=== PATIENT | male | born 1950 | race Caucasian/White ===

== ENCOUNTER 2017-08-24 09:28 | Day surgery (SDC) | payer MEDICARE, BC ==
[2017-08-24] MEDS ORDERED: LACTATED RINGERS 1,000 ML IV ONE ×2 (09:33→11:49)
[2017-08-24] MEDS ORDERED: fentaNYL 100 MCG/2 ML VIAL IVP ONE (11:53)
[2017-08-24] MEDS ORDERED: MIDAZOLAM 2 MG/2 ML VIAL IVP ONE (11:53)
[2017-08-24 12:27] VITALS: BP 130/82
== END 2017-08-24 09:29 | disposition home or self-care (01) ==
LOC: SDS 09:28
PROVIDERS: ATTEND Surgery
PROC: 0DJD8ZZ Inspection of Lower Intestinal Tract, Via Natural or Artificial Opening Endoscopic (ICD-10-PCS; principal; 2017-08-24 11:15)
DX: Z12.11 Encounter for screening for malignant neoplasm of colon (principal); Z79.82 Long term (current) use of aspirin; Z86.010 Personal history of colon polyps; E78.5 Hyperlipidemia, unspecified; Z87.891 Personal history of nicotine dependence
CPT/HCPCS: G0105; J7120

== ENCOUNTER 2017-08-25 07:17 | Day surgery (SDC) | payer MEDICARE, BC ==
[2017-08-25] MEDS ORDERED: LACTATED RINGERS 1,000 ML IV ONE ×2 (07:20→09:32)
[2017-08-25] MEDS ORDERED: ONDANSETRON 4 MG/2 ML VIAL ONE (08:05)
[2017-08-25] MEDS ORDERED: MIDAZOLAM 2 MG/2 ML VIAL IVP ONE (08:47)
[2017-08-25] MEDS ORDERED: fentaNYL 100 MCG/2 ML VIAL IVP ONE (08:47)
[2017-08-25 10:27] VITALS: BP 128/75
== END 2017-08-25 07:18 | disposition home or self-care (01) ==
LOC: SDS 07:17
PROVIDERS: ATTEND Surgery
PROC: 0DBL8ZX Excision of Transverse Colon, Via Natural or Artificial Opening Endoscopic, Diagnostic (ICD-10-PCS; principal; 2017-08-25 08:30)
DX: Z12.11 Encounter for screening for malignant neoplasm of colon (principal); K57.30 Diverticulosis of large intestine without perforation or abscess without bleeding; D12.3 Benign neoplasm of transverse colon; K64.8 Other hemorrhoids; Z79.82 Long term (current) use of aspirin; E78.5 Hyperlipidemia, unspecified; Z87.891 Personal history of nicotine dependence
CPT/HCPCS: 45380; J7120

== ENCOUNTER 2022-05-02 13:48 | Emergency (ER) | payer MEDICARE, BC ==
[2022-05-02 14:12] VITALS: BP 152/96
--- NOTE | 2022-05-02 15:04 | CT Report ---
PROCEDURE: HEAD WO INDICATIONS: LEES/trauma TECHNIQUE: Noncontrast 4.5 mm thick angled axial sections acquired from the foramen magnum to the vertex. For r adiation dose reduction, the following was used: automated exposure control, adjustment of mA and/or kV according to patient size. COMPARISON: None. FINDINGS: Image quality: Excellent. CSF spaces: Basal cisterns are patent. No extra-axial fluid collections. Ventricles are normal in size and shape. Brain: No midline shift. No intracranial masses or hemorrhage. Hair-white matter interface is norm al. Skull and face: Suspect contusion to the left frontal scalp. Calvarium and visualized facial bones a re intact, without suspicious lesions. Sinuses: Visualized sinuses and mastoids are clear. IMPRESSION: No acute intracranial abnormality. Suspect contusion to the left frontal scalp. Reviewed by: Shemar Chowdhury MD on 05/02/2022 3:03 PM PDT Approved by: Shemar Chowdhury MD on 05/02/2022 3:03 PM PDT Station ID: [id number]
== END 2022-05-02 16:18 | disposition left against medical advice (07) ==
LOC: ED 13:48
DX: Z53.21 Procedure and treatment not carried out due to patient leaving prior to being seen by health care provider (principal)

== ENCOUNTER 2022-12-19 08:59 | Outpatient (CLI) | payer MEDICARE, BC ==
[2022-12-19 09:23] LABS: BASOPHILS % (AUTO) 0.7 %; EOSINOPHILS # (AUTO) 0.2 10^3/uL (0.0-0.7); EOSINOPHILS % (AUTO) 3.8 %; HCT - HEMATOCRIT 42.8 % (42.0-52.0); HGB - HEMOGLOBIN 14.1 g/dL (14.0-18.0); LYMPHOCYTES # (AUTO) 1.3 10^3/uL (1.5-3.5); LYMPHOCYTES % (AUTO) 20.4 %; MEAN CORPUSCULAR HEMOGLOBIN 31.8 pg (27.0-31.0); MEAN CORPUSCULAR HGB CONC 32.9 g/dL (32.0-36.0); MEAN CORPUSCULAR VOLUME 96.4 fL (80.0-94.0); MEAN PLATELET VOLUME 9.7 fL (7.4-11.4); MONOCYTES # (AUTO) 0.7 10^3/uL (0.0-1.0); MONOCYTES % (AUTO) 11.4 %; NEUTROPHILS # (AUTO) 3.9 10^3/uL (1.5-6.6); NEUTROPHILS % (AUTO) 63.4 %; PLT - PLATELET COUNT 288 10^3/uL (130-450); RED BLOOD COUNT 4.44 10^6/uL (4.70-6.10); RED CELL DISTRIBUTION WIDTH 12.3 % (12.0-15.0); WHITE BLOOD COUNT 6.1 x10^3/uL (4.8-10.8)
[2022-12-19 09:41] LABS: ALBUMIN 3.9 g/dL (3.2-5.5); ALBUMIN/GLOBULIN RATIO 1.2 (1.0-2.2); ALKALINE PHOSPHATASE 56 IU/L (42-121); ALT ALANINE AMINOTRANSFERASE 28 IU/L (10-60); AST ASPARTATE AMINOTRANSFERASE 25 IU/L (10-42); BUN - BLOOD UREA NITROGEN 18 mg/dL (6-20); CALCIUM 8.9 mg/dL (8.5-10.3); CARBON DIOXIDE - CO2 24 mmol/L (21-32); CHLORIDE 106 mmol/L (101-111); CHOL/HDL RATIO 3.1 (<5.0); CHOLESTEROL 270 mg/dL; CREATININE 0.7 mg/dL (0.6-1.2); GFR - MDRD 111 (>89); GLUCOSE 99 mg/dL (70-100); HDL CHOLESTEROL 87 mg/dL; LDL CHOLESTEROL,CALCULATED 169 mg/dL; LDL/HDL RATIO 1.9 (<3.6); POTASSIUM 4.1 mmol/L (3.5-5.0); SODIUM 139 mmol/L (135-145); TOTAL PROTEIN 7.1 g/dL (6.7-8.2); TRIGLYCERIDES 70 mg/dL; VLDL CHOLESTEROL 14 mg/dL
[2022-12-19 09:53] LABS: THYROID STIMULATING HORMONE 2.02 uIU/mL (0.34-5.60)
== END 2022-12-19 09:00 | disposition home or self-care (01) ==
LOC: LAB 08:59
PROVIDERS: ATTEND Family Medicine
DX: Z12.5 Encounter for screening for malignant neoplasm of prostate (principal); R03.0 Elevated blood-pressure reading, without diagnosis of hypertension; S06.0X1A Concussion with loss of consciousness of 30 minutes or less, initial encounter
CPT/HCPCS: 36415; 80053; 80061; 84443; 85025; G0103; 83721; 84153

== ENCOUNTER 2023-07-07 10:52 | Day surgery (SDC) | payer MEDICARE, BC ==
[2023-07-07] MEDS ORDERED: LACTATED RINGERS 1,000 ML IV ONE (11:20)
--- NOTE | 2023-07-07 11:51 | ANESTHESIA ---
Pre-Anesthesia VS, & Labs - Diagnosis screening exam - Procedure colonoscopy Vital Signs: Temp Pulse Resp BP Pulse Ox O2 Flow Rate 36.3 C L 77 16 146/98 H 98 07/07/23 11:11 07/07/23 11:11 07/07/23 11:11 07/07/23 11:11 07/07/23 11:11 Height: 5 ft 8 in Weight (kg): 79.4 kg Body Mass Index: 26.6 BMI Classification: Overweight - NPO >8 hours Home Medications and Allergies Calcium/Magnesium/Vitamin D3 [Hema-Mag Complex 300-150 mg Tab] 1 each PO DAILY 08/23/17 Meclizine HCl 12.5 mg PO PRN PRN 08/23/17 Multivitamin [Multivitamins] 1 each PO DAILY 08/23/17 Allergies/Adverse Reactions: Allergies Allergy/AdvReac Type Severity Reaction Status Date / Time Penicillins Allergy Respiratory Verified 05/02/22 14:11 Anes History & Medical History - Anesthetic History Anesthesia Complications: reports: No previous complications - Medical History Cardiovascular: reports: High cholesterol Pulmonary: reports: None Gastrointestinal: reports: GERD, Colon polyps Urinary: reports: None Neuro: reports: None Musculoskeletal: reports: Chronic back pain Endocrine/Autoimmune: reports: None Skin: reports: Eczema, Psoriasis, Other Smoking Status: Never smoker Psychosocial: reports: Alcohol (1-2 drinks per day) History of Cancer?: Yes (melanoma) - Surgical History General: reports: Colonoscopy Eyes Ears Nose Throat (EENT): reports: Other (septoplasty) Exam General: Alert, Oriented x3, Cooperative, No acute distress Dental: WNL Mouth Openin Fingerbreadth Neck Mobility: Normal Mallampati classification: III Thyromental Distance: 4-6 cm Mental/Cognitive Status: Alert/Oriented X3, Normal for patient Plan Anesthesia Type: General, Total IV Consent for Procedure(s) Verified and Reviewed: Yes Code Status: Attempt Resuscitation ASA classification: 2-Mild systemic disease Is this case an emergency?: No
[2023-07-07] MEDS ORDERED: LACTATED RINGERS 100 ML IV ONE (12:41)
[2023-07-07 12:58] VITALS: O2SAT 98
[2023-07-07] MEDS ORDERED: PROPOFOL 500 MG/50 ML 500 MG/50 ML VIAL ONE (13:06)
[2023-07-07 13:07] VITALS: BP 121/92
--- NOTE | 2023-07-07 13:12 | ANESTHESIA POST OP EVALUATION ---
Anesthesia Post Eval - Post Anesthesia Eval Vitals: Last Vital Signs Temp 36.3 C L 07/07/23 13:06 Pulse 88 07/07/23 13:06 Resp 16 07/07/23 13:06 BP 121/92 H 07/07/23 13:06 Pulse Ox 98 07/07/23 13:06 O2 Flow Rate CV Function Including HR & BP: Stable Pain Control: Satisfactory Nausea & Vomiting: Negative Mental Status: Baseline Respiratory Status: Airway Patent Hydration Status: Satisfactory Anesthesia Complications: None
== END 2023-07-07 10:53 | disposition home or self-care (01) ==
LOC: SDS 10:52
PROVIDERS: ATTEND Surgery
DX: Z12.11 Encounter for screening for malignant neoplasm of colon (principal); K57.30 Diverticulosis of large intestine without perforation or abscess without bleeding; Z86.010 Personal history of colon polyps
CPT/HCPCS: G0105; J7120

== ENCOUNTER 2023-09-21 07:13 | Day surgery (SDC) | payer MEDICARE, BC ==
[2023-09-21] MEDS ORDERED: BSS/LIDOCAINE/EPINEPHRINE 1 ML VIAL IO ONE (07:14)
[2023-09-21] MEDS ORDERED: PHENYLEPHRINE 2.5% OPHTH 2 ML DROPS EACHEYE ONE (07:14)
[2023-09-21] MEDS ORDERED: BRIMONIDINE 0.2% OPHTH DROPS 5 ML EACHEYE ONE (07:14)
[2023-09-21] MEDS ORDERED: EPINEPHrine 1 MG/ML AMP IO ONE (07:14)
[2023-09-21] MEDS ORDERED: TRIAMCIN/MOXIFLOX OPHTHALMIC 0.6 ML VIAL IO ONE (07:14)
[2023-09-21] MEDS ORDERED: TIMOLOL 0.5% OPHTH DROPS EACHEYE ONE (07:14)
[2023-09-21] MEDS ORDERED: KETOROLAC 0.45% OPHTH DROPS EACHEYE ONE (07:14)
[2023-09-21] MEDS: PROPARACAINE 0.5% OPHTH DROPS 15 ML ONE (07:34)
[2023-09-21] MEDS: KETOROLAC 0.45% OPHTH DROPS ONE (07:34)
[2023-09-21] MEDS: PHENYLEPHRINE 2.5% OPHTH 2 ML DROPS ONE (07:34)
[2023-09-21] MEDS: LACTATED RINGERS 1,000 ML IV ONE (07:51)
--- NOTE | 2023-09-21 08:37 | ANESTHESIA ---
Pre-Anesthesia VS, & Labs - Diagnosis LEFT EYE CATARACT - Procedure PE IOL OS Vital Signs: Temp Pulse Resp BP Pulse Ox O2 Flow Rate 36.5 C 77 13 164/88 H 99 09/21/23 07:29 09/21/23 07:29 09/21/23 07:29 09/21/23 07:29 09/21/23 07:29 Height: 5 ft 8 in Weight (kg): 81.1 kg Body Mass Index: 27.1 BMI Classification: Overweight - NPO Last Fluid Intake: 0430 Home Medications and Allergies Calcium/Magnesium/Vitamin D3 [Hema-Mag Complex 300-150 mg Tab] 1 each PO DAILY 08/23/17 Meclizine HCl 12.5 mg PO PRN PRN 08/23/17 Multivitamin [Multivitamins] 1 each PO DAILY 08/23/17 Allergies/Adverse Reactions: Allergies Allergy/AdvReac Type Severity Reaction Status Date / Time Penicillins Allergy Respiratory Verified 05/02/22 14:11 fentanyl AdvReac Emesis Verified 09/21/23 07:54 Anes History & Medical History - Anesthetic History Anesthesia Complications: reports: Post-Operative Nausea/Vomiting (WITH FENTANYL) Family history of Anesthesia Complications: Denies - Medical History Cardiovascular: reports: High cholesterol (DENIES CP/SOB) Pulmonary: reports: None Gastrointestinal: reports: GERD (CONTROLLED WITH DIET), Colon polyps Urinary: reports: None Neuro: reports: None Musculoskeletal: reports: Chronic back pain Endocrine/Autoimmune: reports: None Skin: reports: Eczema, Psoriasis, Other Smoking Status: Never smoker (WAS 25 YEARS AGO) Psychosocial: reports: Alcohol (OCCASIONAL) - Surgical History General: reports: Colonoscopy Eyes Ears Nose Throat (EENT): reports: Other Exam General: Alert Dental: WNL Mouth Openin Fingerbreadth Neck Mobility: Normal Mallampati classification: II Thyromental Distance: 4-6 cm Plan Anesthesia Type: MAC Consent for Procedure(s) Verified and Reviewed: Yes Code Status: Attempt Resuscitation ASA classification: 2-Mild systemic disease Is this case an emergency?: No
[2023-09-21] MEDS: BRIMONIDINE 0.2% OPHTH DROPS 5 ML OPTH ONE (08:57)
[2023-09-21] MEDS: EPINEPHrine 1 MG/ML AMP IR ONE (08:57)
[2023-09-21] MEDS: TIMOLOL 0.5% OPHTH DROPS OPTH ONE (08:57)
[2023-09-21] MEDS: TRIAMCIN/MOXIFLOX OPHTHALMIC 0.6 ML VIAL IO ONE (08:58)
[2023-09-21] MEDS: BSS/LIDOCAINE/EPINEPHRINE 1 ML SYRINGE IO ONE (08:58)
[2023-09-21] MEDS: PROPARACAINE 0.5% OPHTH DROPS 15 ML EACHEYE ONE (08:58)
[2023-09-21] MEDS: VANCOMYCIN OPHTH (TOPICAL) 10 MG/ML SYRINGE TOP ONE (08:58)
[2023-09-21] MEDS ORDERED: MIDAZOLAM 2 MG/2 ML VIAL ONE (09:06)
[2023-09-21] MEDS ORDERED: LIDOCAINE-PF 2% 10 ML AMP SUBQ ONE (09:08)
[2023-09-21] MEDS ORDERED: BSS/LIDOCAINE/EPINEPHRINE 1 ML VIAL ONE (09:20)
[2023-09-21] MEDS: LACTATED RINGERS 500 ML IV ONE (09:32)
[2023-09-21 09:45] VITALS: BP 148/89; O2SAT 98
--- NOTE | 2023-09-21 09:46 | OPERATIVE REPORT ---
Operative Report - Other Other Information/Narrative: Date of Surgery: 09/21/23 Preop Dx: Visually significant cataract left eye. This was the first cataract surgery. Postop Dx: Same Procedure: Phacoemulsification with posterior chamber intraocular lens implant left eye Surgeon: Dr. Nick Haley Anesthesia: Monitored anesthesia care Complications: None Operative Indications: This is a 73-year-old M with progressive vision loss in the left eye due to 3+ nuclear sclerotic cataract. Best corrected visual acuity was 20/25 with glare to 20/70 vision in the left eye. Indications for surgery were: - Difficulty seeing words on a computer screen - Difficulty reading - Difficulty driving in low light or at night - Difficulty driving at night because of headlights from other vehicles - Difficulty with glare or bright lights in any situation The patient was consented at length concerning the risks and benefits of cataract surgery after which the patient expressed a desire to proceed with surgery. Operative Procedure: The patient was taken into OR#3 and placed under monitored anesthesia care. A surgical time-out was conducted confirming correct patient, correct procedure, and correct surgical site. The patient was given topical anesthesia and then prepped and draped in the usual sterile fashion. The eye was entered at the 6 and 3 oclock positions. Intracameral Shugarcaine was injected into the anterior chamber followed by a dispersive viscoelastic. A continuous-tear curvilinear capsulorhexis was performed. The nucleus was hydrodissected and phacoemulsified. The cortex was evacuated using automated infusion and aspiration. A cohesive viscoelastic was injected into the capsular bag and a 19.0 diopter intraocular lens was inserted into the bag. Infusion and aspiration were used to evacuate the viscoelastic materials from the eye. The wounds were hydrated and the eye inflated to physiologic pressure using balanced salt solution. Approximately 0.25ml of a mixture of triamcinolone and moxifloxacin was injected trans-sclerally into the vitreous in the inferotemporal quadrant using a 30 gauge cannula. An additional 0.25ml of a mixture of triamcinolone and moxifloxacin was injected subconjunctivally in the superior quadrant for infection and inflammation prophylaxis. Wound integrity was checked with Weck-Brenda sponges. The patient was taken from the operating r oom in good condition and given post-op instructions.
--- NOTE | 2023-09-21 10:02 | ANESTHESIA POST OP EVALUATION ---
Anesthesia Post Eval - Post Anesthesia Eval Vitals: Last Vital Signs Temp 36.7 C 09/21/23 09:32 Pulse 83 09/21/23 09:41 Resp 16 09/21/23 09:41 BP 148/89 H 09/21/23 09:41 Pulse Ox 98 09/21/23 09:41 O2 Flow Rate CV Function Including HR & BP: Stable Pain Control: Satisfactory Nausea & Vomiting: Negative Mental Status: Baseline Respiratory Status: Airway Patent Hydration Status: Satisfactory Anesthesia Complications: None
== END 2023-09-21 07:14 | disposition home or self-care (01) ==
LOC: SDS 07:13
PROVIDERS: ATTEND Ophthalmology
DX: H25.812 Combined forms of age-related cataract, left eye (principal)
CPT/HCPCS: 66984; A9270; J3490; J7120

== ENCOUNTER 2023-09-28 09:18 | Day surgery (SDC) | payer MEDICARE, BC ==
[2023-09-28] MEDS: LACTATED RINGERS 1,000 ML IV ONE (09:39)
[2023-09-28] MEDS: PROPARACAINE 0.5% OPHTH DROPS 15 ML ONE (09:45)
[2023-09-28] MEDS: KETOROLAC 0.45% OPHTH DROPS ONE (09:46)
[2023-09-28 09:47] VITALS: O2SAT 98
[2023-09-28] MEDS ORDERED: MIDAZOLAM 2 MG/2 ML VIAL ONE (10:51)
[2023-09-28] MEDS ORDERED: EPINEPHrine 1 MG/ML AMP ONE (10:59)
[2023-09-28] MEDS ORDERED: BRIMONIDINE 0.2% OPHTH DROPS 5 ML ONE (11:00)
[2023-09-28] MEDS ORDERED: TIMOLOL 0.5% OPHTH DROPS ONE (11:00)
[2023-09-28] MEDS ORDERED: BSS/LIDOCAINE/EPINEPHRINE 1 ML VIAL ONE (11:00)
[2023-09-28] MEDS ORDERED: TRIAMCIN/MOXIFLOX OPHTHALMIC 0.6 ML VIAL IO ONE (11:00)
--- NOTE | 2023-09-28 11:01 | ANESTHESIA ---
Pre-Anesthesia VS, & Labs - Diagnosis retained lens fragment - Procedure extraction of retained lens fragment Vital Signs: Temp Pulse Resp BP Pulse Ox O2 Flow Rate 36.3 C L 74 18 156/103 H 98 09/28/23 09:30 09/28/23 09:30 09/28/23 09:30 09/28/23 09:30 09/28/23 09:30 Height: 5 ft 8 in Weight (kg): 80 kg Body Mass Index: 26.8 BMI Classification: Overweight - NPO >8 hours Home Medications and Allergies Home Medications: Ambulatory Orders Loratadine [Claritin] 1 tab PO DAILY 09/28/23 Calcium/Magnesium/Vitamin D3 [Hema-Mag Complex 300-150 mg Tab] 1 each PO DAILY 08/23/17 Meclizine HCl 12.5 mg PO PRN PRN 08/23/17 Multivitamin [Multivitamins] 1 each PO DAILY 08/23/17 Loratadine [Claritin] 1 tab PO DAILY 09/28/23 Allergies/Adverse Reactions: Allergies Allergy/AdvReac Type Severity Reaction Status Date / Time Penicillins Allergy Respiratory Verified 09/27/23 14:18 fentanyl AdvReac Emesis Verified 09/27/23 14:18 Anes History & Medical History - Anesthetic History Anesthesia Complications: reports: No previous complications Family history of Anesthesia Complications: Denies Family history of Malignant Hyperthermia: Denies - Medical History Cardiovascular: reports: High cholesterol Pulmonary: reports: None Gastrointestinal: reports: GERD, Colon polyps Urinary: reports: None Neuro: reports: None Musculoskeletal: reports: None Endocrine/Autoimmune: reports: None Skin: reports: Eczema, Psoriasis Smoking Status: Never smoker (WAS 25 YEARS AGO) - Surgical History General: reports: Colonoscopy Eyes Ears Nose Throat (EENT): reports: Other Exam General: Alert, Oriented x3, Cooperative Dental: WNL Mouth Openin Fingerbreadth Neck Mobility: Normal Mallampati classification: II Thyromental Distance: 4-6 cm Respiratory: Lungs clear Cardiovascular: Regular rate Plan Anesthesia Type: MAC Consent for Procedure(s) Verified and Reviewed: Yes Code Status: Attempt Resuscitation ASA classification: 2-Mild systemic disease Is this case an emergency?: No
[2023-09-28] MEDS: BRIMONIDINE 0.2% OPHTH DROPS 5 ML OPTH ONE (11:05)
[2023-09-28] MEDS: CHONDR SULF/HYALURONATE SYRINGE IO ONE (11:06)
[2023-09-28] MEDS: TRIAMCINOLONE PF 40 MG/ML VIAL IO ONE (11:06)
[2023-09-28] MEDS: PROPARACAINE 0.5% OPHTH DROPS 15 ML LEFTEYE ONE (11:06)
[2023-09-28] MEDS: TIMOLOL 0.5% OPHTH DROPS OPTH ONE (11:06)
[2023-09-28] MEDS: CARBACHOL 0.01% 1.5 ML VIAL IO ONE (11:07)
[2023-09-28] MEDS: LIDOCAINE-MPF 1% 30 ML VIAL IJ ONE (11:07)
[2023-09-28] MEDS: LACTATED RINGERS 700 ML IV ONE (11:32)
--- NOTE | 2023-09-28 11:39 | OPERATIVE REPORT ---
Operative Report - Other Other Information/Narrative: Date of Surgery: 09/28/23 Preop Dx: Retained lens fragment left eye. Cataract surgery was performed in the left eye on . On post-operative day #1 a lens fragment was noted in the anterior chamber. Postop Dx: Same Procedure: Aspiration of a retained lens fragment left eye Surgeon: Dr. Nick Haley Anesthesia: Monitored anesthesia care Complications: None Operative Indications: This is a 73-year-old M who, one day after uncomplicated cataract surgery, was noted to have a piece of his crystalline lens remaining in the anterior chamber. Indication for surgery is that the fragment would cause continued inflammation in the eye and possibly cause damage to the endothelium of the cornea. The patient was consented at length concerning the risks and benefits of retained lens fragment removal after which the patient expressed a desire to proceed with surgery. Operative Procedure: The patient was taken into OR#3 and placed under monitored anesthesia care. A surgical time-out was conducted confirming correct patient, correct procedure, and correct surgical site. The patient was given topical anesthesia and then prepped and draped in the usual sterile fashion. The eye was entered at the 6 and 3 oclock positions. Intracameral Shugarcaine was injected into the anterior chamber. A rather large piece of lens material was noted to move about in the anterior chamber. This turned out to be nucleus rather than cortex. The retained tissue evacuated using automated infusion and aspiration. The wounds were hydrated and the eye inflated to physiologic pressure using balanced salt solution. Approximately 0.25ml of a mixture of triamcinolone and moxifloxacin was injected trans-sclerally into the vitreous in the inferotemporal quadrant using a 30 gauge cannula. An additional 0.25ml of a mixture of triamcinolone and moxifloxacin was injected subconjunctivally in the superior quadrant for infection and inflammation prophylaxis. Wound integrity was checked with Weck-Brenda sponges. The patient was taken from the operating room in good condition and given post-op instructions.
--- NOTE | 2023-09-28 11:50 | ANESTHESIA POST OP EVALUATION ---
Anesthesia Post Eval - Post Anesthesia Eval Vitals: Last Vital Signs Temp 36.7 C 09/28/23 11:44 Pulse 85 09/28/23 11:44 Resp 16 09/28/23 11:44 BP 136/77 H 09/28/23 11:44 Pulse Ox 98 09/28/23 11:44 O2 Flow Rate CV Function Including HR & BP: Stable Pain Control: Satisfactory Nausea & Vomiting: Negative Mental Status: Baseline Respiratory Status: Airway Patent Hydration Status: Satisfactory Anesthesia Complications: None
[2023-09-28 11:51] VITALS: BP 136/77
== END 2023-09-28 09:19 | disposition home or self-care (01) ==
LOC: SDS 09:18
PROVIDERS: ATTEND Ophthalmology
DX: H59.022 Cataract (lens) fragments in eye following cataract surgery, left eye (principal); Z87.891 Personal history of nicotine dependence
CPT/HCPCS: 66840; A9270; J3300; J3490; J7120

== ENCOUNTER 2024-05-03 09:23 | Outpatient (CLI) | payer MEDICARE, BC ==
[2024-05-03 09:41] LABS: BASOPHILS # (AUTO) 0.1 10^3/uL (0.0-0.1); BASOPHILS % (AUTO) 0.8 %; EOSINOPHILS # (AUTO) 0.2 10^3/uL (0.0-0.7); EOSINOPHILS % (AUTO) 2.6 %; HCT - HEMATOCRIT 42.1 % (42.0-52.0); HGB - HEMOGLOBIN 13.7 g/dL (14.0-18.0); LYMPHOCYTES # (AUTO) 1.6 10^3/uL (1.5-3.5); LYMPHOCYTES % (AUTO) 25.8 %; MEAN CORPUSCULAR HEMOGLOBIN 31.5 pg (27.0-31.0); MEAN CORPUSCULAR HGB CONC 32.5 g/dL (32.0-36.0); MEAN CORPUSCULAR VOLUME 96.8 fL (80.0-94.0); MEAN PLATELET VOLUME 9.9 fL (7.4-11.4); MONOCYTES # (AUTO) 0.8 10^3/uL (0.0-1.0); MONOCYTES % (AUTO) 12.2 %; NEUTROPHILS # (AUTO) 3.6 10^3/uL (1.5-6.6); NEUTROPHILS % (AUTO) 58.3 %; PLT - PLATELET COUNT 300 10^3/uL (130-450); RED BLOOD COUNT 4.35 10^6/uL (4.70-6.10); WHITE BLOOD COUNT 6.1 x10^3/uL (4.8-10.8)
[2024-05-03 09:55] LABS: ALBUMIN 4.1 g/dL (3.2-5.5); ALBUMIN/GLOBULIN RATIO 1.4 (1.0-2.2); ALKALINE PHOSPHATASE 54 IU/L (42-121); ALT ALANINE AMINOTRANSFERASE 22 IU/L (10-60); AST ASPARTATE AMINOTRANSFERASE 18 IU/L (10-42); BILIRUBIN,TOTAL 0.6 mg/dL (0.2-1.0); BUN - BLOOD UREA NITROGEN 13 mg/dL (6-20); CALCIUM 9.3 mg/dL (8.5-10.3); CARBON DIOXIDE - CO2 26 mmol/L (21-32); CHLORIDE 107 mmol/L (101-111); CHOL/HDL RATIO 3.6 (<5.0); CHOLESTEROL 238 mg/dL; CREATININE 0.7 mg/dL (0.6-1.3); GFR - MDRD 111 (>89); GLUCOSE 98 mg/dL (74-104); HDL CHOLESTEROL 67 mg/dL; LDL CHOLESTEROL,CALCULATED 146 mg/dL; LDL/HDL RATIO 2.2 (<3.6); SODIUM 139 mmol/L (135-145); TRIGLYCERIDES 125 mg/dL; VLDL CHOLESTEROL 25 mg/dL
[2024-05-03 10:06] LABS: THYROID STIMULATING HORMONE 2.52 uIU/mL (0.34-5.60)
== END 2024-05-03 09:24 | disposition home or self-care (01) ==
LOC: LAB 09:23
PROVIDERS: ATTEND Family Medicine
DX: R97.20 Elevated prostate specific antigen [PSA] (principal); Z85.820 Personal history of malignant melanoma of skin; Z12.5 Encounter for screening for malignant neoplasm of prostate
CPT/HCPCS: 36415; 80053; 80061; 84443; 85025; G0103; 83721; 84153